=== PATIENT | female | born 1970 | race Caucasian/White ===

== ENCOUNTER 2024-04-25 10:42 | Emergency (ER) | payer MEDICARE ==
[~2024-04-25] VITALS: Ht 165.1 cm; Wt 121.3 kg
[2024-04-25] MEDS ORDERED: ATENOLOL100 MG PO (10:59)
[2024-04-25] MEDS ORDERED: LISINOPRIL20 MG PO (10:59)
[2024-04-25] MEDS ORDERED: SPIRIVA RESPIMAT4 GM INH (10:59)
[2024-04-25] MEDS ORDERED: VENTOLIN HFA18 GM INH (10:59)
[2024-04-25] MEDS ORDERED: POTASSIUM CHLO10 ME1 PO (10:59)
[2024-04-25] MEDS ORDERED: ALVESCO6.1 G1 INH (10:59)
[2024-04-25] MEDS ORDERED: CLONIDINE HCL0.2 MG PO (10:59)
[2024-04-25] MEDS ORDERED: FUROSEMIDE20 MG PO (10:59)
[2024-04-25] MEDS ORDERED: VANCOMYCIN HCL/D5W 1 GM/270 ML PIGGYBACK KIT IV ONE (11:30)
[2024-04-25 11:49] LABS: BASOPHILS 0.5 % (0-2); EOSINOPHILS 5.9 % (0-6); HEMATOCRIT 38.9 % (35.0-50.0); HEMOGLOBIN 13.4 g/dL (12.0-18.0); LYMPHOCYTES 21.3 % (24-44); MCH 32.8 (27-36); MCHC 34.3 g/dl (30-36); MCV 95.5 fl (81-99); MONOCYTES 7.5 % (0-12); NEUTROPHILS 64.8 % (39-80); PLATELET COUNT 222 K/uL (140-440); RBC 4.07 M/ul (4.3-5.7); RDW 14.7 (10.5-15.0)
[2024-04-25 12:04] LABS: ALBUMIN 2.8 g/dL (3.4-5.0); ALBUMIN/GLOBULIN RATIO 0.74 (1.1-2.4); ANION GAP 9.7 (7-21); BILIRUBIN, TOTAL 0.4 ng/dL (0.2-1.0); CREATININE, SERUM 1.08 mg/dL (0.55-1.02); POTASSIUM 3.7 mmol/L (3.5-5.1); PROTEIN, TOTAL 6.6 g/dL (6.4-8.2)
[2024-04-25 12:10] LABS: LACTIC ACID, BLOOD 2.1 mmol/L (0.4-2.0)
[2024-04-25] MEDS ORDERED: MORPHINE SULFATE 4 MG/ML VIAL IV ONE (13:15)
[2024-04-25] MEDS ORDERED: CLEOCIN HCL300 MG PO (15:32)
[2024-04-25 16:20] VITALS: BP 145/75
== END 2024-04-25 16:15 | disposition home or self-care (01) ==
LOC: ED 10:42
PROVIDERS: Emergency Medicine
DX: L03.115 Cellulitis of right lower limb (principal); L03.116 Cellulitis of left lower limb; I10 Essential (primary) hypertension; J45.909 Unspecified asthma, uncomplicated; Z79.899 Other long term (current) drug therapy
CPT/HCPCS: 36415; 80053; 83605; 85025; 87040; 96365; 96375; 99283-25; J2270; J3370